=== PATIENT | male | born 1990 | race Caucasian/White ===

== ENCOUNTER 2016-11-07 15:04 | Emergency (ER) | payer OTHER ==
--- NOTE | 2016-11-07 18:16 | ED NURSING NOTES ---
Clinical Report - Nurses [facility] [address] [place] [address] 11/07/2016 15:06 Patient: ANAMARIA ERICKSON TRIAGE Triage time 15:Nov 07 2016. Acuity: LEVEL 3. Chief Complaint: (WITHDRAWL HERION BENZO). Alert. No acute distress. SEPSIS SCREEN: Sepsis Screen. Negative (no infection suspected/documented). ROZ COMA SCORE: Roz Coma Scale: 15- eyes open spontaneously (4); best verbal response- oriented x 4 (5); best motor response- obeys commands (6). --15:27 Nita Loyola R.N. 15:23 11/07/16. BP: 118/96. HR: 126. RR: 16. O2 saturation: 97%. Temp: 97.8 F. Pain level now: 03/30. --15:27 Nita Loyola R.N. Weight: 77.1 kg stated. Height/Length: 70 inches Per Patient. BMI: 24.4. --15:26 Nita Loyola R.N. Medications None. --15:23 Nita Loyola R.N. Allergies None. --15:23 Nita Loyola R.N. History Arrived by private vehicle. Historian: patient. Accompanied by friend. This started yesterday. He has had weakness. Reports muscle aches. ( PT STATES THAT HE HAS BEEN PASSING OUT). 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 PAST MEDICAL HX: Immunizations: up-to-date. SOCIAL HX: Current every day heavy tobacco smoker (cigarette)- less than 1 pack per day. History of heavy drug use: heroin, marijuana, benzodiazepines. Recently used drugs. (2 days ago). No alcohol use. No infectious disease exposure. SELF HARM ASSESSMENT: A self harm assessment was performed. The patient answered "no" to the question "Do you have thoughts of harming or killing yourself?". FALL RISK ASSESSMENT: Fall risk assessment completed. No fall risk identified. NUTRITIONAL RISK ASSESSMENT: The nutritional risk assessment revealed no deficiencies. FUNCTIONAL ASSESSMENT: Functional assessment: no impairments noted. LEARNING NEEDS ASSESSMENT: The learning needs assessment revealed no barriers. ABUSE ASSESSMENT: Abuse assessment: The patient was asked "Do you feel safe in your home?". SKIN INTEGRITY ASSESSMENT: Skin integrity risk assessment completed. No skin integrity risk identified. --15:27 Nita Loyola R.N. PROBLEMS: Lifestyle / Substance Problems. Substance Abuse. Suicidal Ideation. Rectal Bleed. Constipation. Immunizations. Depression. Gastric ulcer. --15:24 Nita Loyola R.N. ADDITIONAL SURGERIES: Endoscopy. --15:24 Nita Loyola R.N. Interventions ID band on patient. To room. --15:27 Nita Loyola R.N. PHYSICAL ASSESSMENT Ambulatory to room. Patient gowned. GENERAL / NEURO / PSYCH: Alert. Oriented X 4. He is awake and alert, has normal color for race, is pink and has poor eye contact. He appears restless, is cooperative, is well nourished and exhibits normal mobility. He appears older than stated age and unkempt and is sitting up, walking and not vomiting. HEENT: Pupils equal, round and reactive to light. RESPIRATORY: Respirations not labored. CVS: Capillary refill less than 2 seconds. Pulses within normal limits. GI / : Abdomen soft and nontender. SKIN: Skin intact. Skin is warm and dry. Normal skin turgor. --15:41 Mariaa Alex R.N. NURSING PROGRESS NOTES Patient gowned. Head of bed elevated. Patient identifiers checked. Call light placed in reach. Side rails up x 2. Bed placed in lowest position. Brakes of bed on. --15:30 Nita Loyola R.N. Patient identifiers checked. Call light placed in reach. Side rails up x 1. Bed placed in lowest position. Patient waiting for evaluation. ( pt provided warm blanket, has friend with him that states he is staying in a safe house and needs to "pee clean" to get in to a treatment facility. waiting MD [facility] for poc). --15:38 Mariaa Alex R.N. 17:27 11/07/2016 Phenergan (Promethazine HCl) IM 25 mg given. Given in the right gluteus pascale and left gluteus pascale. Allergies verified, confirmed 5 rights and sedative warning given to the patient and patient's service architect. --17:37 Mariaa Alex R.N. ( pt on o2 sat monitor and bp, phenergen given IM left glut max). --17:40 Mariaa Alex R.N. 17:29 11/07/16. Patient transported to radiology by stretcher with [employer]. --17:41 Mariaa Alex R.N. Patient returned. (17:41 Nov 07 2016). --17:41 Mariaa Alex R.N. 18:15 11/07/16. The patient has had no adverse reaction. --18:30 Mariaa Alex R.N. 18:16 11/07/2016 Phenergan IM Response: no adverse reaction symptoms are the same. The patient feels the same. --18:26 Mariaa Alex R.N. DISPOSITION / DISCHARGE No learning barriers present. Discharge instructions provided and reviewed with the patient. Patient verbalized understanding. Written instructions provided in Estonian. The patient was discharged by the physician. He was discharged home and accompanied by service architect. He left the Emergency Department ambulatory and via private vehicle. Community Education Coordinator driving. ( rx given to pt , pt ambulated to lobby with service architect with steady gait, no emesis in dept, pt enc to follow through with detox and treatment plan). --18:29 Mariaa Alex R.N. 18:25 11/07/16. BP: 109/81. HR: 108. RR: 17. O2 saturation: 98%. Temp: 98.1 F. Pain level now: 03/30. --18:29 Mariaa Alex R.N. Locked/Released at 11/07/2016 18:58 by Mariaa Alex R.N.
--- NOTE | 2016-11-07 18:16 | ED CLINICAL REPORT ---
Clinical Report - Physicians/Mid Levels [facility] [address] [place] [address] 11/07/2016 15:06 Patient: ANAMARIA ERICKSON Time Seen: 15:46; initial patient contact. Arrived- By private vehicle. Historian- patient. HISTORY OF PRESENT ILLNESS Chief Complaint: "GOT THE SHAKES". Wants to stop drug use. Wants to enter detox program. Symptoms started yesterday. Substances abused: Marijuana, amphetamines and heroin (Pt also states benzos). No fever, chills, vomiting, diarrhea or abdominal pain. No seizure, delusions, hallucinations or suicidal thoughts. He has had nausea and tremors and been agitated. Not confused or paranoid. Has not been depressed. The symptoms are described as moderate. No injuries noted. Similar symptoms previously: Many times. Recent medical care: Not recently seen/assessed. REVIEW OF SYSTEMS No headache, dizziness, chest pain or palpitations. All systems otherwise negative, except as recorded above. PAST HISTORY Lifestyle / Substance Problems. Substance Abuse. Suicidal Ideation. Rectal Bleed. Constipation. Immunizations. Depression. Gastric ulcer. SURGERIES: Endoscopy. SOCIAL HISTORY Current every day smoker. History of heavy drug use 2: heroin, methamphetamines, marijuana, benzodiazepines. Recently used drugs days ago. No alcohol use. Has social support. Has place to stay. ADDITIONAL NOTES The nursing notes have been reviewed. PHYSICAL EXAM Vital Signs: 11/07/2016 15:23 BP: 118/96. HR: 126. RR: 16. O2 saturation: 97%. Temp: 97.8 F. Pain level now: 10/10. Have been reviewed. Hypertensive. Tachycardic. Respiratory rate normal. Temperature normal. Oxygen saturation normal. Appearance: Alert. Oriented X3. No acute distress. ENT: Moist mucous membranes. CVS: Tachycardia. Heart sounds normal. Rhythm normal. Respiratory: No respiratory distress. Breath sounds normal. Abdomen: Soft and nontender. No organomegaly. The bowel sounds are not abnormal. Skin: Skin warm and dry. Normal skin color. No rash. Neuro: Alert. Oriented X 3. Mood/affect normal. LABS, X-RAYS, AND EKG Laboratory Tests: Urine Drug Screen: (KASEY: 11/07/2016 16:45) ( MsgRcvd 11/07/2016 17:22) Final results Test Result Flag Units (Reference) AMPHETAMINE/METHAMPHETAMINE POSITIVE H (NEGATIVE) BARBITURATE NEGATIVE (NEGATIVE) BENZODIAZEPINE NEGATIVE (NEGATIVE) CANNABINOID POSITIVE H (NEGATIVE) COCAINE NEGATIVE (NEGATIVE) ECSTASY NEGATIVE (NEGATIVE) METHADONE NEGATIVE (NEGATIVE) OPIATE POSITIVE H (NEGATIVE) The urine drug screen is a qualitative screening test fordrug overdose and abuse. All screen results should beconsidered as presumptive.Drugs screened for are as follows:BenzodiazepinesCocaineAmphetamines/MetamphetaminesTHC (Tetrahydrocannabinol)OpiatesBarbituratesEcstasyMethadonePositive results are unconfirmed. For confirmation, notifythe lab for the specimen to be sent to the reference lab.All confirmations must be performed by a differentmethodology.The ingestion of natural herbal and plant productscontaining Ephedra/Ephedra metabolites can produce in urineone or more substances capable of cross reacting withamphetamine/methamphetamine immunoassays. These testsprovide a preliminary result only. A more specificalternative chemical method must be used to obtain aconfirmed analytical result. . PROGRESS AND PROCEDURES Course of Care: No Benzos on utox, no risk for withdrawl seizures. Disposition: Discharged home in good and improved condition. Condition: good. CLINICAL IMPRESSION Chronic substance abuse- marijuana, heroin, methamphetamines with drug induced mood disorder. INSTRUCTIONS Prescription Medications: Vistaril 50 mg: take 1 orally every 6 hours as needed for anxiety. Dispense thirty (30). No refill. Substitution is permissible. Promethazine Tablets 25 mg: take 1 tablet orally every 6 hours as needed for nausea and vomiting. Dispense fifteen (15). No refill. Follow-up: Screening today revealed the patient's blood pressure to be in the hypertensive range. The patient should follow up with a primary care provider for blood pressure management. Follow-up with: [facility], , , [address], , [place], [address] Follow up in two days. Call for an appointment. (Electronically signed by Jose Marin Dr. 11/08/2016 8:56)
--- NOTE | 2016-11-07 18:16 | ED NURSING NOTES ---
Clinical Report - Nurses [facility] [address] [place] [address] 11/07/2016 15:06 Patient: ANAMARIA ERICKSON TRIAGE Triage time 15:Nov 07 2016. Acuity: LEVEL 3. Chief Complaint: (WITHDRAWL HERION BENZO). Alert. No acute distress. SEPSIS SCREEN: Sepsis Screen. Negative (no infection suspected/documented). ROZ COMA SCORE: Roz Coma Scale: 15- eyes open spontaneously (4); best verbal response- oriented x 4 (5); best motor response- obeys commands (6). --15:27 Nita Loyola R.N. 15:23 11/07/16. BP: 118/96. HR: 126. RR: 16. O2 saturation: 97%. Temp: 97.8 F. Pain level now: 03/30. --15:27 Nita Loyola R.N. Weight: 77.1 kg stated. Height/Length: 70 inches Per Patient. BMI: 24.4. --15:26 Nita Loyola R.N. Medications None. --15:23 Nita Loyola R.N. Allergies None. --15:23 Nita Loyola R.N. History Arrived by private vehicle. Historian: patient. Accompanied by friend. This started yesterday. He has had weakness. Reports muscle aches. ( PT STATES THAT HE HAS BEEN PASSING OUT). 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 PAST MEDICAL HX: Immunizations: up-to-date. SOCIAL HX: Current every day heavy tobacco smoker (cigarette)- less than 1 pack per day. History of heavy drug use: heroin, marijuana, benzodiazepines. Recently used drugs. (2 days ago). No alcohol use. No infectious disease exposure. SELF HARM ASSESSMENT: A self harm assessment was performed. The patient answered "no" to the question "Do you have thoughts of harming or killing yourself?". FALL RISK ASSESSMENT: Fall risk assessment completed. No fall risk identified. NUTRITIONAL RISK ASSESSMENT: The nutritional risk assessment revealed no deficiencies. FUNCTIONAL ASSESSMENT: Functional assessment: no impairments noted. LEARNING NEEDS ASSESSMENT: The learning needs assessment revealed no barriers. ABUSE ASSESSMENT: Abuse assessment: The patient was asked "Do you feel safe in your home?". SKIN INTEGRITY ASSESSMENT: Skin integrity risk assessment completed. No skin integrity risk identified. --15:27 Nita Loyola R.N. PROBLEMS: Lifestyle / Substance Problems. Substance Abuse. Suicidal Ideation. Rectal Bleed. Constipation. Immunizations. Depression. Gastric ulcer. --15:24 Nita Loyola R.N. ADDITIONAL SURGERIES: Endoscopy. --15:24 Nita Loyola R.N. Interventions ID band on patient. To room. --15:27 Nita Loyola R.N. PHYSICAL ASSESSMENT Ambulatory to room. Patient gowned. GENERAL / NEURO / PSYCH: Alert. Oriented X 4. He is awake and alert, has normal color for race, is pink and has poor eye contact. He appears restless, is cooperative, is well nourished and exhibits normal mobility. He appears older than stated age and unkempt and is sitting up, walking and not vomiting. HEENT: Pupils equal, round and reactive to light. RESPIRATORY: Respirations not labored. CVS: Capillary refill less than 2 seconds. Pulses within normal limits. GI / : Abdomen soft and nontender. SKIN: Skin intact. Skin is warm and dry. Normal skin turgor. --15:41 Mariaa Alex R.N. NURSING PROGRESS NOTES Patient gowned. Head of bed elevated. Patient identifiers checked. Call light placed in reach. Side rails up x 2. Bed placed in lowest position. Brakes of bed on. --15:30 Nita Loyola R.N. Patient identifiers checked. Call light placed in reach. Side rails up x 1. Bed placed in lowest position. Patient waiting for evaluation. ( pt provided warm blanket, has friend with him that states he is staying in a safe house and needs to "pee clean" to get in to a treatment facility. waiting MD [facility] for poc). --15:38 Mariaa Alex R.N. 17:27 11/07/2016 Phenergan (Promethazine HCl) IM 25 mg given. Given in the right gluteus pascale and left gluteus pascale. Allergies verified, confirmed 5 rights and sedative warning given to the patient and patient's shoe puller. --17:37 Mariaa Alex R.N. ( pt on o2 sat monitor and bp, phenergen given IM left glut max). --17:40 Mariaa Alex R.N. 17:29 11/07/16. Patient transported to radiology by stretcher with [employer]. --17:41 Mariaa Alex R.N. Patient returned. (17:41 Nov 07 2016). --17:41 Mariaa Alex R.N. 18:15 11/07/16. The patient has had no adverse reaction. --18:30 Mariaa Alex R.N. 18:16 11/07/2016 Phenergan IM Response: no adverse reaction symptoms are the same. The patient feels the same. --18:26 Mariaa Alex R.N. DISPOSITION / DISCHARGE No learning barriers present. Discharge instructions provided and reviewed with the patient. Patient verbalized understanding. Written instructions provided in Serbian. The patient was discharged by the physician. He was discharged home and accompanied by shoe puller. He left the Emergency Department ambulatory and via private vehicle. Science Faculty Member driving. ( rx given to pt , pt ambulated to lobby with shoe puller with steady gait, no emesis in dept, pt enc to follow through with detox and treatment plan). --18:29 Mariaa Alex R.N. 18:25 11/07/16. BP: 109/81. HR: 108. RR: 17. O2 saturation: 98%. Temp: 98.1 F. Pain level now: 03/30. --18:29 Mariaa Alex R.N. Locked/Released at 11/07/2016 18:58 by Mariaa Alex R.N.
--- NOTE | 2016-11-07 18:16 | ED ORDER SUMMARY ---
..... Patient: ANAMARIA ERICKSON OrderSheet [facility] VisitID: [id number] [address] [place] [address] 26y, M Registration Date/Time: 11/07/2016 ORDER SHEET Weight: 77.1 kg (stated) Allergies: None GENERAL ORDERS: Urine Drug Screen Urgent (16:36 11/07/2016 Jignesh Brian) (Ack 16:47 Oly) (17:00 Chance R.N.) MEDICATION ORDERS: Phenergan IM 25 mg (HIGH ALERT MEDICATION, NOW) (16:35 11/07/2016 Jignesh Brian) (Ack 17:23 Chance R.N.) (17:37 Chance R.N.) IV FLUIDS: ORDER SHEET NOTES: [Electronically signed by Mariaa Alex R.N. (18:58 11/07/2016)] [Electronically signed by Jose Marin Dr. (08:56 11/08/2016)] [Electronically locked/signed by Mariaa Alex R.N. (18:58 11/07/2016)]
--- NOTE | 2016-11-07 18:16 | ED ORDER SUMMARY ---
..... Patient: ANAMARIA ERICKSON OrderSheet [facility] VisitID: [id number] [address] [place] [address] 26y, M Registration Date/Time: 11/07/2016 ORDER SHEET Weight: 77.1 kg (stated) Allergies: None GENERAL ORDERS: Urine Drug Screen Urgent (16:36 11/07/2016 Jignesh Brian) (Ack 16:47 Oly) (17:00 Chance R.N.) MEDICATION ORDERS: Phenergan IM 25 mg (HIGH ALERT MEDICATION, NOW) (16:35 11/07/2016 Jignesh Brian) (Ack 17:23 Chance R.N.) (17:37 Chance R.N.) IV FLUIDS: ORDER SHEET NOTES: [Electronically signed by Mariaa Alex R.N. (18:58 11/07/2016)] [Electronically signed by Jose Marin Dr. (08:56 11/08/2016)] [Electronically locked/signed by Mariaa Alex R.N. (18:58 11/07/2016)]
--- NOTE | 2016-11-07 18:16 | ED CLINICAL REPORT ---
Clinical Report - Physicians/Mid Levels [facility] [address] [place] [address] 11/07/2016 15:06 Patient: ANAMARIA ERICKSON Time Seen: 15:46; initial patient contact. Arrived- By private vehicle. Historian- patient. HISTORY OF PRESENT ILLNESS Chief Complaint: "GOT THE SHAKES". Wants to stop drug use. Wants to enter detox program. Symptoms started yesterday. Substances abused: Marijuana, amphetamines and heroin (Pt also states benzos). No fever, chills, vomiting, diarrhea or abdominal pain. No seizure, delusions, hallucinations or suicidal thoughts. He has had nausea and tremors and been agitated. Not confused or paranoid. Has not been depressed. The symptoms are described as moderate. No injuries noted. Similar symptoms previously: Many times. Recent medical care: Not recently seen/assessed. REVIEW OF SYSTEMS No headache, dizziness, chest pain or palpitations. All systems otherwise negative, except as recorded above. PAST HISTORY Lifestyle / Substance Problems. Substance Abuse. Suicidal Ideation. Rectal Bleed. Constipation. Immunizations. Depression. Gastric ulcer. SURGERIES: Endoscopy. SOCIAL HISTORY Current every day smoker. History of heavy drug use 2: heroin, methamphetamines, marijuana, benzodiazepines. Recently used drugs days ago. No alcohol use. Has social support. Has place to stay. ADDITIONAL NOTES The nursing notes have been reviewed. PHYSICAL EXAM Vital Signs: 11/07/2016 15:23 BP: 118/96. HR: 126. RR: 16. O2 saturation: 97%. Temp: 97.8 F. Pain level now: 10/10. Have been reviewed. Hypertensive. Tachycardic. Respiratory rate normal. Temperature normal. Oxygen saturation normal. Appearance: Alert. Oriented X3. No acute distress. ENT: Moist mucous membranes. CVS: Tachycardia. Heart sounds normal. Rhythm normal. Respiratory: No respiratory distress. Breath sounds normal. Abdomen: Soft and nontender. No organomegaly. The bowel sounds are not abnormal. Skin: Skin warm and dry. Normal skin color. No rash. Neuro: Alert. Oriented X 3. Mood/affect normal. LABS, X-RAYS, AND EKG Laboratory Tests: Urine Drug Screen: (KASEY: 11/07/2016 16:45) ( MsgRcvd 11/07/2016 17:22) Final results Test Result Flag Units (Reference) AMPHETAMINE/METHAMPHETAMINE POSITIVE H (NEGATIVE) BARBITURATE NEGATIVE (NEGATIVE) BENZODIAZEPINE NEGATIVE (NEGATIVE) CANNABINOID POSITIVE H (NEGATIVE) COCAINE NEGATIVE (NEGATIVE) ECSTASY NEGATIVE (NEGATIVE) METHADONE NEGATIVE (NEGATIVE) OPIATE POSITIVE H (NEGATIVE) The urine drug screen is a qualitative screening test fordrug overdose and abuse. All screen results should beconsidered as presumptive.Drugs screened for are as follows:BenzodiazepinesCocaineAmphetamines/MetamphetaminesTHC (Tetrahydrocannabinol)OpiatesBarbituratesEcstasyMethadonePositive results are unconfirmed. For confirmation, notifythe lab for the specimen to be sent to the reference lab.All confirmations must be performed by a differentmethodology.The ingestion of natural herbal and plant productscontaining Ephedra/Ephedra metabolites can produce in urineone or more substances capable of cross reacting withamphetamine/methamphetamine immunoassays. These testsprovide a preliminary result only. A more specificalternative chemical method must be used to obtain aconfirmed analytical result. . PROGRESS AND PROCEDURES Course of Care: No Benzos on utox, no risk for withdrawl seizures. Disposition: Discharged home in good and improved condition. Condition: good. CLINICAL IMPRESSION Chronic substance abuse- marijuana, heroin, methamphetamines with drug induced mood disorder. INSTRUCTIONS Prescription Medications: Vistaril 50 mg: take 1 orally every 6 hours as needed for anxiety. Dispense thirty (30). No refill. Substitution is permissible. Promethazine Tablets 25 mg: take 1 tablet orally every 6 hours as needed for nausea and vomiting. Dispense fifteen (15). No refill. Follow-up: Screening today revealed the patient's blood pressure to be in the hypertensive range. The patient should follow up with a primary care provider for blood pressure management. Follow-up with: [facility], , , [address], , [place], [address] Follow up in two days. Call for an appointment. (Electronically signed by Jose Marin Dr. 11/08/2016 8:56)
--- NOTE | 2016-11-08 08:57 | ED MAR SUMMARY ---
..... Medication Administration Record [facility] [address] [place] [address] Patient: ANAMARIA ERICKSON Visit ID: [id number] 26y, M Weight: 77.1 kg Height/Length: 70 in BMI: 24.4 ALLERGIES: None Given 17:27 11/07/2016 Mariaa Alex R.N. Medication Administered: PHENERGAN [IM] (PROMETHAZINE HCL), Dose: 25 mg IM. Medication Ordered: Phenergan IM 25 mg (HIGH ALERT MEDICATION, NOW).
--- NOTE | 2016-11-08 08:57 | ED MAR SUMMARY ---
..... Medication Administration Record [facility] [address] [place] [address] Patient: ANAMARIA ERICKSON Visit ID: [id number] 26y, M Weight: 77.1 kg Height/Length: 70 in BMI: 24.4 ALLERGIES: None Given 17:27 11/07/2016 Mariaa Alex R.N. Medication Administered: PHENERGAN [IM] (PROMETHAZINE HCL), Dose: 25 mg IM. Medication Ordered: Phenergan IM 25 mg (HIGH ALERT MEDICATION, NOW).
--- NOTE | 2016-11-08 08:57 | ED MED RECONCILIATION SUMMARY ---
Patient: ANAMARIA ERICKSON Medication Reconciliation Report [facility] VisitID: [id number] [address] [place] [address] 26y, M Registration Date/Time: 11/07/2016 Weight: 77.1 kg Height/Length: 70 in. BMI: 24.4 ALLERGIES: None The patient's Home Medications are listed below: NONE. The source(s) of the original Home Medication information: Not obtained. The following Medications were given to the patient in the Emergency Department: Phenergan [IM] IM 25 mg, administered: 11/07/2016 5:27:00 PM The following Medications were prescribed to the patient: Vistaril 50 mg: take 1 orally every 6 hours as needed for anxiety. Dispense thirty (30). No refill. Substitution is permissible. -- Jose Marin Dr. Promethazine Tablets 25 mg: take 1 tablet orally every 6 hours as needed for nausea and vomiting. Dispense fifteen (15). No refill. -- Jose Marin Dr.
--- NOTE | 2016-11-08 08:57 | ED DISCHARGE INSTRUCTIONS ---
Patient: ANAMARIA ERICKSON General Instructions [facility] VisitID: [id number] [address], [place] [address] 26y, M Registration Date/Time: 11/07/2016 Chronic substance abuse- marijuana, heroin, methamphetamines with drug induced mood disorder. INSTRUCTIONS Prescription Medications: Vistaril 50 mg: take 1 orally every 6 hours as needed for anxiety. Dispense thirty (30). No refill. Substitution is permissible. Promethazine Tablets 25 mg: take 1 tablet orally every 6 hours as needed for nausea and vomiting. Dispense fifteen (15). No refill. Follow-up: Screening today revealed the patient's blood pressure to be in the hypertensive range. The patient should follow up with a primary care provider for blood pressure management. Follow-up with: [facility], , , [address], , [place], [id number] Follow up in two days. Call for an appointment. ADDITIONAL INFORMATION Drug Abuse Use and abuse of such drugs as marijuana, amphetamines (speed, crank), cocaine, heroin or prescription pain medicines (Vicodin, codeine), sedatives and sleeping pills (Valium, Klonopin), PCP, mescaline and LSD may lead to addiction or dependence. Once this occurs, you are at greater risk for any of the following: Craving for the drug and unable to stop using the drug even though you think you want to stop (psychological dependence) Drug withdrawal symptoms if you stop taking the drug (physical dependence) Loss of your job or your family Arrest, conviction and half-way sentence for possession of an illegal substance or for driving under the influence of such a substance Accidental injuries to yourself or others while you are under the influence of the drug (in a car or at home). HIV infection (much greater risk if you use IV drugs) Other sexually transmitted diseases (herpes, chlamydia, gonorrhea and others) Severe and fatal infection of the heart valves (if you use IV drugs) Stroke, heart attack, hepatitis B or C, kidney failure from overdose Home Care: Admit you have a drug problem. Ask for help from your family and close friends. Seek professional help. This could be in the form of individual psychotherapy or counseling or an outpatient, inpatient, or residential drug treatment program. Join a self-help group for drug abuse. Avoid friends who abuse drugs themselves or tempt you to continue abusing drugs. Eat a balanced diet and begin a regular exercise program. Follow Up with your doctor or as advised by our staff. Contact one of the resources below for help. National [place] on Alcoholism and Drug Dependence www.ncadd.org 584-656-KRCC Narcotics Anonymous www.na.org 957-464-7309 [facility] Substance [facility] (for referral to treatment programs) www.[employer] 673-036-0289 Get Prompt Medical Attention if any of the following occur: Agitation, anxiety, unable to sleep Unintended weight loss (more than 10 to 15 pounds over 3 months) Seizure Chest pain Fever of 100.4F (38C) or higher, or as directed by your healthcare provider Excess drowsiness or inability to be awakened Shortness of breath Slow breathing under 8 breaths per minute Cough with colored sputum Redness, swelling or tenderness at an injection site Pain Management: Chronic You have a painful condition that has required frequent use of narcotic-type pain medicine. We would like to see that you receive the best possible care for your problem. To achieve this, you must have apersonal physician who can supervise a treatment plan for you. You may locate a personal physician on your own or contact one of the doctors whose name has been given to you. If your physician determines that you need to visit the ER for pain control, that doctor should provide you with a PAIN CONTRACT. This is a letter from your doctor which describes what pain medicine you may receive, how much and how often. You sign it agreeing to the terms of the treatment plan. Bring this with you each time you come to this facility. It will help the Emergency Physician provide the proper treatment for you with minimal delay. Please Note: IN THE FUTURE YOU WILL NOT BE ABLE TO RECEIVE Narcotic Pain Medicine From This Facility Without A Pain Contract Or Telephone Approval From Your Personal Physician. Hydroxyzine Pamoate Oral capsule What is this medicine? HYDROXYZINE (antoni DROX i zeen) is an antihistamine. This medicine is used to treat allergy symptoms. It is also used to treat anxiety and tension. This medicine can be used with other medicines to induce sleep before surgery. How should I use this medicine? Take this medicine by mouth with a full glass of water. Follow the directions on the prescription label. You may take this medicine with food or on an empty stomach. Take your medicine at regular intervals. Do not take your medicine more often than directed. Talk to your leasing agent regarding the use of this medicine in children. Special care may be needed. While this drug may be prescribed for children as young as 6 years of age for selected conditions, precautions do apply. Patients over 65 years old may have a stronger reaction and need a smaller dose. What side effects may I notice from receiving this medicine? Side effects that you should report to your doctor or health critical care clinical nurse specialist as soon as possible: fast or irregular heartbeat difficulty passing urine seizures slurred speech or confusion tremor Side effects that usually do not require medical attention (report to your doctor or health critical care clinical nurse specialist if they continue or are bothersome): constipation drowsiness fatigue headache stomach upset What may interact with this medicine? alcohol barbiturate medicines for sleep or seizures medicines for colds, allergies medicines for depression, anxiety, or emotional disturbances medicines for pain medicines for sleep muscle relaxants What if I miss a dose? If you miss a dose, take it as soon as you can. If it is almost time for your next dose, take only that dose. Do not take double or extra doses. Where should I keep my medicine? Keep out of the reach of children. Store at room temperature between 15 and 30 degrees C (59 and 86 degrees F). Keep container tightly closed. Throw away any unused medicine after the expiration date. What should I tell my health care provider before I take this medicine? They need to know if you have any of these conditions: any chronic illness difficulty passing urine glaucoma heart disease kidney disease liver disease lung disease an unusual or allergic reaction to hydroxyzine, cetirizine, other medicines, foods, dyes, or preservatives or trying to get breast-feeding What should I watch for while using this medicine? Tell your doctor or health critical care clinical nurse specialist if your symptoms do not improve. You may get drowsy or dizzy. Do not drive, use machinery, or do anything that needs mental alertness until you know how this medicine affects you. Do not stand or sit up quickly, especially if you are an older patient. This reduces the risk of dizzy or fainting spells. Alcohol may interfere with the effect of this medicine. Avoid alcoholic drinks. Your mouth may get dry. Chewing sugarless gum or sucking hard candy, and drinking plenty of water may help. Contact your doctor if the problem does not go away or is severe. This medicine may cause dry eyes and blurred vision. If you wear contact lenses you may feel some discomfort. Lubricating drops may help. See your eye doctor if the problem does not go away or is severe. If you are receiving skin tests for allergies, tell your doctor you are using this medicine. Promethazine Hydrochloride Oral tablet What is this medicine? PROMETHAZINE (proe METH a zeen) is an antihistamine. It is used to treat allergic reactions and to treat or prevent nausea and vomiting from illness or motion sickness. It is also used to make you sleep before surgery, and to help treat pain or nausea after surgery. How should I use this medicine? Take this medicine by mouth with a glass of water. Follow the directions on the prescription label. Take your doses at regular intervals. Do not take your medicine more often than directed. Talk to your leasing agent regarding the use of this medicine in children. Special care may be needed. This medicine should not be given to infants and children younger than 2 years old. What side effects may I notice from receiving this medicine? Side effects that you should report to your doctor or health critical care clinical nurse specialist as soon as possible: blurred vision irregular heartbeat, palpitations or chest pain muscle or facial twitches pain or difficulty passing urine seizures skin rash slowed or shallow breathing unusual bleeding or bruising yellowing of the eyes or skin Side effects that usually do not require medical attention (report to your doctor or health critical care clinical nurse specialist if they continue or are bothersome): headache nightmares, agitation, nervousness, excitability, not able to sleep (these are more likely in children) stuffy nose What may interact with this medicine? Do not take this medicine with any of the following medications: medicines called MAO Inhibitors like Nardil, Parnate, Marplan, Eldepryl other phenothiazines like trimethobenzamide This medicine may also interact with the following medications: barbiturates like phenobarbital bromocriptine certain antidepressants certain antihistamines used in allergy or cold medicines epinephrine levodopa medicines for sleep medicines for mental problems and psychotic disturbances medicines for movement abnormalities as in Parkinson's disease, or for gastrointestinal problems muscle relaxants prescription pain medicines What if I miss a dose? If you miss a dose, take it as soon as you can. If it is almost time for your next dose, take only that dose. Do not take double or extra doses. Where should I keep my medicine? Keep out of the reach of children. Store at room temperature, between 20 and 25 degrees C (68 and 77 degrees F). Protect from light. Throw away any unused medicine after the expiration date. What should I tell my health care provider before I take this medicine? They need to know if you have any of these conditions: glaucoma high blood pressure or heart disease kidney disease liver disease lung or breathing disease, like asthma prostate trouble pain or difficulty passing urine seizures an unusual or allergic reaction to promethazine or phenothiazines, other medicines, foods, dyes, or preservatives or trying to get breast-feeding What should I watch for while using this medicine? Tell your doctor or health critical care clinical nurse specialist if your symptoms do not start to get better in 1 to 2 days. You may get drowsy or dizzy. Do not drive, use machinery, or do anything that needs mental alertness until you know how this medicine affects you. To reduce the risk of dizzy or fainting spells, do not stand or sit up quickly, especially if you are an older patient. Alcohol may increase dizziness and drowsiness. Avoid alcoholic drinks. Your mouth may get dry. Chewing sugarless gum or sucking hard candy, and drinking plenty of water may help. Contact your doctor if the problem does not go away or is severe. This medicine may cause dry eyes and blurred vision. If you wear contact lenses you may feel some discomfort. Lubricating drops may help. See your eye doctor if the problem does not go away or is severe. This medicine can make you more sensitive to the sun. Keep out of the sun. If you cannot avoid being in the sun, wear protective clothing and use sunscreen. Do not use sun lamps or tanning beds/booths. If you are diabetic, check your blood-sugar levels regularly. You have been given the following additional information: Drug Abuse Drug Seeking Behavior, Pain Contract Required Hydroxyzine Pamoate Oral capsule Promethazine Hydrochloride Oral tablet (Electronically signed by Jose Marin Dr. 11/08/2016 8:56)
--- NOTE | 2016-11-08 08:57 | ED MED RECONCILIATION SUMMARY ---
Patient: ANAMARIA ERICKSON Medication Reconciliation Report [facility] VisitID: [id number] [address] [place] [address] 26y, M Registration Date/Time: 11/07/2016 Weight: 77.1 kg Height/Length: 70 in. BMI: 24.4 ALLERGIES: None The patient's Home Medications are listed below: NONE. The source(s) of the original Home Medication information: Not obtained. The following Medications were given to the patient in the Emergency Department: Phenergan [IM] IM 25 mg, administered: 11/07/2016 5:27:00 PM The following Medications were prescribed to the patient: Vistaril 50 mg: take 1 orally every 6 hours as needed for anxiety. Dispense thirty (30). No refill. Substitution is permissible. -- Jose Marin Dr. Promethazine Tablets 25 mg: take 1 tablet orally every 6 hours as needed for nausea and vomiting. Dispense fifteen (15). No refill. -- Jose Marin Dr.
--- NOTE | 2016-11-08 08:57 | ED DISCHARGE INSTRUCTIONS ---
Patient: ANAMARIA ERICKSON General Instructions [facility] VisitID: [id number] [address], [place] [address] 26y, M Registration Date/Time: 11/07/2016 Chronic substance abuse- marijuana, heroin, methamphetamines with drug induced mood disorder. INSTRUCTIONS Prescription Medications: Vistaril 50 mg: take 1 orally every 6 hours as needed for anxiety. Dispense thirty (30). No refill. Substitution is permissible. Promethazine Tablets 25 mg: take 1 tablet orally every 6 hours as needed for nausea and vomiting. Dispense fifteen (15). No refill. Follow-up: Screening today revealed the patient's blood pressure to be in the hypertensive range. The patient should follow up with a primary care provider for blood pressure management. Follow-up with: [facility], , , [address], , [place], [id number] Follow up in two days. Call for an appointment. ADDITIONAL INFORMATION Drug Abuse Use and abuse of such drugs as marijuana, amphetamines (speed, crank), cocaine, heroin or prescription pain medicines (Vicodin, codeine), sedatives and sleeping pills (Valium, Klonopin), PCP, mescaline and LSD may lead to addiction or dependence. Once this occurs, you are at greater risk for any of the following: Craving for the drug and unable to stop using the drug even though you think you want to stop (psychological dependence) Drug withdrawal symptoms if you stop taking the drug (physical dependence) Loss of your job or your family Arrest, conviction and care home sentence for possession of an illegal substance or for driving under the influence of such a substance Accidental injuries to yourself or others while you are under the influence of the drug (in a car or at home). HIV infection (much greater risk if you use IV drugs) Other sexually transmitted diseases (herpes, chlamydia, gonorrhea and others) Severe and fatal infection of the heart valves (if you use IV drugs) Stroke, heart attack, hepatitis B or C, kidney failure from overdose Home Care: Admit you have a drug problem. Ask for help from your family and close friends. Seek professional help. This could be in the form of individual psychotherapy or counseling or an outpatient, inpatient, or residential drug treatment program. Join a self-help group for drug abuse. Avoid friends who abuse drugs themselves or tempt you to continue abusing drugs. Eat a balanced diet and begin a regular exercise program. Follow Up with your doctor or as advised by our staff. Contact one of the resources below for help. National [place] on Alcoholism and Drug Dependence www.ncadd.org 002-623-SARX Narcotics Anonymous www.na.org 343-431-0466 [employer] Alcohol and Substance Abuse Information Center (for referral to treatment programs) www.[employer] 191-891-6675 Get Prompt Medical Attention if any of the following occur: Agitation, anxiety, unable to sleep Unintended weight loss (more than 10 to 15 pounds over 3 months) Seizure Chest pain Fever of 100.4F (38C) or higher, or as directed by your healthcare provider Excess drowsiness or inability to be awakened Shortness of breath Slow breathing under 8 breaths per minute Cough with colored sputum Redness, swelling or tenderness at an injection site Pain Management: Chronic You have a painful condition that has required frequent use of narcotic-type pain medicine. We would like to see that you receive the best possible care for your problem. To achieve this, you must have apersonal physician who can supervise a treatment plan for you. You may locate a personal physician on your own or contact one of the doctors whose name has been given to you. If your physician determines that you need to visit the ER for pain control, that doctor should provide you with a PAIN CONTRACT. This is a letter from your doctor which describes what pain medicine you may receive, how much and how often. You sign it agreeing to the terms of the treatment plan. Bring this with you each time you come to this facility. It will help the Emergency Physician provide the proper treatment for you with minimal delay. Please Note: IN THE FUTURE YOU WILL NOT BE ABLE TO RECEIVE Narcotic Pain Medicine From This Facility Without A Pain Contract Or Telephone Approval From Your Personal Physician. Hydroxyzine Pamoate Oral capsule What is this medicine? HYDROXYZINE (antoni DROX i zeen) is an antihistamine. This medicine is used to treat allergy symptoms. It is also used to treat anxiety and tension. This medicine can be used with other medicines to induce sleep before surgery. How should I use this medicine? Take this medicine by mouth with a full glass of water. Follow the directions on the prescription label. You may take this medicine with food or on an empty stomach. Take your medicine at regular intervals. Do not take your medicine more often than directed. Talk to your parcel post officer regarding the use of this medicine in children. Special care may be needed. While this drug may be prescribed for children as young as 6 years of age for selected conditions, precautions do apply. Patients over 65 years old may have a stronger reaction and need a smaller dose. What side effects may I notice from receiving this medicine? Side effects that you should report to your doctor or health rn wound care as soon as possible: fast or irregular heartbeat difficulty passing urine seizures slurred speech or confusion tremor Side effects that usually do not require medical attention (report to your doctor or health rn wound care if they continue or are bothersome): constipation drowsiness fatigue headache stomach upset What may interact with this medicine? alcohol barbiturate medicines for sleep or seizures medicines for colds, allergies medicines for depression, anxiety, or emotional disturbances medicines for pain medicines for sleep muscle relaxants What if I miss a dose? If you miss a dose, take it as soon as you can. If it is almost time for your next dose, take only that dose. Do not take double or extra doses. Where should I keep my medicine? Keep out of the reach of children. Store at room temperature between 15 and 30 degrees C (59 and 86 degrees F). Keep container tightly closed. Throw away any unused medicine after the expiration date. What should I tell my health care provider before I take this medicine? They need to know if you have any of these conditions: any chronic illness difficulty passing urine glaucoma heart disease kidney disease liver disease lung disease an unusual or allergic reaction to hydroxyzine, cetirizine, other medicines, foods, dyes, or preservatives or trying to get breast-feeding What should I watch for while using this medicine? Tell your doctor or health rn wound care if your symptoms do not improve. You may get drowsy or dizzy. Do not drive, use machinery, or do anything that needs mental alertness until you know how this medicine affects you. Do not stand or sit up quickly, especially if you are an older patient. This reduces the risk of dizzy or fainting spells. Alcohol may interfere with the effect of this medicine. Avoid alcoholic drinks. Your mouth may get dry. Chewing sugarless gum or sucking hard candy, and drinking plenty of water may help. Contact your doctor if the problem does not go away or is severe. This medicine may cause dry eyes and blurred vision. If you wear contact lenses you may feel some discomfort. Lubricating drops may help. See your eye doctor if the problem does not go away or is severe. If you are receiving skin tests for allergies, tell your doctor you are using this medicine. Promethazine Hydrochloride Oral tablet What is this medicine? PROMETHAZINE (proe METH a zeen) is an antihistamine. It is used to treat allergic reactions and to treat or prevent nausea and vomiting from illness or motion sickness. It is also used to make you sleep before surgery, and to help treat pain or nausea after surgery. How should I use this medicine? Take this medicine by mouth with a glass of water. Follow the directions on the prescription label. Take your doses at regular intervals. Do not take your medicine more often than directed. Talk to your parcel post officer regarding the use of this medicine in children. Special care may be needed. This medicine should not be given to infants and children younger than 2 years old. What side effects may I notice from receiving this medicine? Side effects that you should report to your doctor or health rn wound care as soon as possible: blurred vision irregular heartbeat, palpitations or chest pain muscle or facial twitches pain or difficulty passing urine seizures skin rash slowed or shallow breathing unusual bleeding or bruising yellowing of the eyes or skin Side effects that usually do not require medical attention (report to your doctor or health rn wound care if they continue or are bothersome): headache nightmares, agitation, nervousness, excitability, not able to sleep (these are more likely in children) stuffy nose What may interact with this medicine? Do not take this medicine with any of the following medications: medicines called MAO Inhibitors like Nardil, Parnate, Marplan, Eldepryl other phenothiazines like trimethobenzamide This medicine may also interact with the following medications: barbiturates like phenobarbital bromocriptine certain antidepressants certain antihistamines used in allergy or cold medicines epinephrine levodopa medicines for sleep medicines for mental problems and psychotic disturbances medicines for movement abnormalities as in Parkinson's disease, or for gastrointestinal problems muscle relaxants prescription pain medicines What if I miss a dose? If you miss a dose, take it as soon as you can. If it is almost time for your next dose, take only that dose. Do not take double or extra doses. Where should I keep my medicine? Keep out of the reach of children. Store at room temperature, between 20 and 25 degrees C (68 and 77 degrees F). Protect from light. Throw away any unused medicine after the expiration date. What should I tell my health care provider before I take this medicine? They need to know if you have any of these conditions: glaucoma high blood pressure or heart disease kidney disease liver disease lung or breathing disease, like asthma prostate trouble pain or difficulty passing urine seizures an unusual or allergic reaction to promethazine or phenothiazines, other medicines, foods, dyes, or preservatives or trying to get breast-feeding What should I watch for while using this medicine? Tell your doctor or health rn wound care if your symptoms do not start to get better in 1 to 2 days. You may get drowsy or dizzy. Do not drive, use machinery, or do anything that needs mental alertness until you know how this medicine affects you. To reduce the risk of dizzy or fainting spells, do not stand or sit up quickly, especially if you are an older patient. Alcohol may increase dizziness and drowsiness. Avoid alcoholic drinks. Your mouth may get dry. Chewing sugarless gum or sucking hard candy, and drinking plenty of water may help. Contact your doctor if the problem does not go away or is severe. This medicine may cause dry eyes and blurred vision. If you wear contact lenses you may feel some discomfort. Lubricating drops may help. See your eye doctor if the problem does not go away or is severe. This medicine can make you more sensitive to the sun. Keep out of the sun. If you cannot avoid being in the sun, wear protective clothing and use sunscreen. Do not use sun lamps or tanning beds/booths. If you are diabetic, check your blood-sugar levels regularly. You have been given the following additional information: Drug Abuse Drug Seeking Behavior, Pain Contract Required Hydroxyzine Pamoate Oral capsule Promethazine Hydrochloride Oral tablet (Electronically signed by Jose Marin Dr. 11/08/2016 8:56)
== END 2016-11-07 18:24 | disposition home or self-care (01) ==
LOC: ED SRH 15:04
DX: F12.10 Cannabis abuse, uncomplicated (principal); F11.20 Opioid dependence, uncomplicated; F19.94 Other psychoactive substance use, unspecified with psychoactive substance-induced mood disorder
CPT/HCPCS: 92760; 92761; 92762; 92763; 92764; 92765; 92766; 92767